=== PATIENT | male | born 1995 | race Hispanic/Latino ===

== ENCOUNTER 2017-03-06 12:41 | Emergency (ER) | payer OTHER ==
[~2017-03-06] VITALS: Ht 177.8 cm; Wt 108.9 kg
== END 2017-03-06 13:45 | disposition home or self-care (01) ==
LOC: ED 12:41
DX: T15.92XA Foreign body on external eye, part unspecified, left eye, initial encounter (principal)
CPT/HCPCS: 99282

== ENCOUNTER 2017-11-29 12:59 | Emergency (ER) | payer OTHER ==
[~2017-11-29] VITALS: Ht 177.8 cm; Wt 108.9 kg
== END 2017-11-29 13:33 | disposition home or self-care (01) ==
LOC: ED 12:59
DX: Z00.8 Encounter for other general examination (principal)

== ENCOUNTER 2019-01-29 07:50 | Emergency (ER) | payer OTHER ==
[~2019-01-29] VITALS: Ht 177.8 cm; Wt 113.4 kg
--- OUTSIDE RECORDS SUMMARY | 2019-01-29 07:52 | XMS ---
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 Loc has no Care Guidelines for this patient. [place] VISIT COUNT (12 MO.) 1 [facility] TOTAL 1 NOTE: Visits indicate total known visits. ED/UCC VISIT TRACKING (12 MO.) 01/29/2019 07:50 [facility] [place] TYPE: Emergency COMPLAINT: - BACK PAIN INPATIENT VISIT TRACKING (12 MO.) No inpatient visits to display in this time frame [id number]
[2019-01-29] MEDS ORDERED: INDOMETHACIN50 MG PO (08:32)
[2019-01-29] MEDS ORDERED: CYCLOBENZAPRINE10 MG PO (08:32)
== END 2019-01-29 09:20 | disposition home or self-care (01) ==
LOC: ED 07:50
DX: S39.92XA Unspecified injury of lower back, initial encounter (principal); X50.1XXA Overexertion from prolonged static or awkward postures, initial encounter
CPT/HCPCS: 96372; 99283; J1885

== ENCOUNTER 2020-09-22 08:14 | Emergency (ER) | payer SELFPAY ==
[~2020-09-22] VITALS: Ht 177.8 cm; Wt 117.9 kg
[~2020-09-22 08:14] MED LIST: CYCLOBENZAPRINE10 MG PO; INDOMETHACIN50 MG PO
--- OUTSIDE RECORDS SUMMARY | 2020-09-22 08:18 | XMS ---
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 Loc has no Care Guidelines for this patient. [place] VISIT COUNT (12 MO.) 1 [facility] [place] TOTAL 1 NOTE: Visits indicate total known visits. ED/UCC VISIT TRACKING (12 MO.) 09/22/2020 08:15 [facility] [place] TYPE: Emergency COMPLAINT: - L ARM PAIN INPATIENT VISIT TRACKING (12 MO.) No inpatient visits to display in this time frame [id number]
[2020-09-22] MEDS ORDERED: NAPROSYN500 MG PO (09:19)
== END 2020-09-22 09:31 | disposition home or self-care (01) ==
LOC: ED 08:14
DX: S29.011A Strain of muscle and tendon of front wall of thorax, initial encounter (principal); M94.0 Chondrocostal junction syndrome [Tietze]; X58.XXXA Exposure to other specified factors, initial encounter
CPT/HCPCS: 71046; 99283-25

== ENCOUNTER 2021-03-23 10:30 | Emergency (ER) | payer OTHER ==
[~2021-03-23] VITALS: Ht 177.8 cm; Wt 117.9 kg
[~2021-03-23 10:30] MED LIST changes: +NAPROSYN500 MG PO
--- OUTSIDE RECORDS SUMMARY | 2021-03-23 10:38 | XMS ---
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 Loc has no Care Guidelines for this patient. [place] VISIT COUNT (12 MO.) 2 [facility] [place] TOTAL 2 NOTE: Visits indicate total known visits. ED/C VISIT TRACKING (12 MO.) 03/23/2021 10:30 [facility] [place] TYPE: Emergency COMPLAINT: - LOWER L BACK INJURY 09/22/2020 08:15 [facility] [place] TYPE: Emergency COMPLAINT: - L ARM PAIN DIAGNOSES: - Chondrocostal junction syndrome [Tietze] - Exposure to other specified factors, initial encounter - Strain of muscle and tendon of front wall of thorax, initial encounter INPATIENT VISIT TRACKING (12 MO.) No inpatient visits to display in this time frame [id number]
[2021-03-23] MEDS ORDERED: IBUPROFEN200 MG PO (10:43)
[2021-03-23] MEDS ORDERED: HYDROCODON-ACE1 EA10 PO (11:28)
== END 2021-03-23 11:58 | disposition home or self-care (01) ==
LOC: ED 10:30
DX: S39.012A Strain of muscle, fascia and tendon of lower back, initial encounter (principal); X50.0XXA Overexertion from strenuous movement or load, initial encounter; Y99.0 Civilian activity done for income or pay
CPT/HCPCS: 99283

== ENCOUNTER 2022-05-31 05:52 | Emergency (ER) | payer OTHER ==
[~2022-05-31] VITALS: Ht 177.8 cm; Wt 126.0 kg
[~2022-05-31 05:52] MED LIST changes: +HYDROCODON-ACE1 EA10 PO; +IBUPROFEN200 MG PO
--- OUTSIDE RECORDS SUMMARY | 2022-05-31 06:00 | XMS ---
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 Loc has no Care Guidelines for this patient. [place] VISIT COUNT (12 MO.) 1 [facility] [place] TOTAL 1 NOTE: Visits indicate total known visits. ED/UCC VISIT TRACKING (12 MO.) 05/31/2022 05:53 [facility] [place] TYPE: Emergency COMPLAINT: - EAR PAIN INPATIENT VISIT TRACKING (12 MO.) No inpatient visits to display in this time frame [id number]
[2022-05-31] MEDS ORDERED: AMOXICILLIN500 MG PO (06:27)
[2022-05-31] MEDS ORDERED: FLONASE ALLERG9.9 ML NAS (06:28)
== END 2022-05-31 06:38 | disposition home or self-care (01) ==
LOC: ED 05:52
DX: H66.91 Otitis media, unspecified, right ear (principal); H68.023 Chronic Eustachian salpingitis, bilateral
CPT/HCPCS: 99282